=== PATIENT | female | born 1970 | race Hispanic/Latino ===

== ENCOUNTER 2017-10-31 10:45 | Emergency (ER) | payer OTHER ==
--- NOTE | 2017-10-31 11:12 | ED PDOC ---
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 Patient has mild amount of white discharge. She denies fever or chills. She does have slight burning sensation with urination but states this occurs when urine touches skin of external genitalia. She denies concern for STDs. She denies diffuse rash to body despite triage note stating otherwise. PMD: none Past Medical History Reviewed: Historical Data, Nursing Documentation, Vital Signs Vital Signs: Last Vital Signs Temp 98 F 10/31/17 13:15 Pulse 80 10/31/17 13:15 Resp 18 10/31/17 13:15 BP 120/70 10/31/17 13:15 Pulse Ox 98 10/31/17 13:15 - Medical History PMH: No Chronic Diseases - Surgical History Surgical History: Appendectomy, (x 2) - Family History Family History: States: No Known Family Hx - Living Arrangements Living Arrangements: With Family - Social History Current smoker - smoking cessation education provided: No Ex-Smoker (has not smoked in the last 12 months): No Alcohol: None Drugs: Denies - Home Medications Home Medications: Ambulatory Orders Medication Instructions Recorded Cyclobenzaprine [Cyclobenzaprine 10 mg PO TID #20 tab 10/17/15 HCl] Ibuprofen [Motrin] 600 mg PO Q6 #20 tab 10/17/15 Oxycodone HCl/Acetaminophen 1 tab PO Q4 #10 tab 10/17/15 [Percocet 325 mg-5 mg] Cyclobenzaprine [Cyclobenzaprine 10 mg PO Q8 #15 tab 12/01/15 HCl] Naproxen [Naprosyn] 500 mg PO BID #20 tablet 12/01/15 Fluconazole [Diflucan] 150 mg PO ONCE #1 tab 10/31/17 Metronidazole [Metrogel] 60 gm VAG HS #1 packet 10/31/17 - Allergies Allergies/Adverse Reactions: Allergies Allergy/AdvReac Type Severity Reaction Status Date / Time No Known Allergies Allergy Verified 10/17/15 11:05 Review of Systems ROS Statement: Except As Marked, All Systems Reviewed And Found Negative Constitutional: Negative for: Fever, Chills Gastrointestinal: Negative for: Vomiting, Abdominal Pain Genitourinary Female: Positive for: Dysuria, Vaginal Discharge, Other (vaginal pruritus). Negative for: Incontinence, Hematuria Physical Exam - Reviewed Nursing Documentation Reviewed: Yes Vital Signs Reviewed: Yes - Physical Exam Appears: Positive for: Well, Non-toxic, No Acute Distress Skin: Positive for: Normal Color. Negative for: Rash (no diffuse body rash) Gastrointestinal/Abdominal: Positive for: Soft. Negative for: Tenderness, Distended, Guarding, Rebound Pelvic Exam: Positive for: Other (erythema and skin excoriation noted to labia majora, mild white discharge, no lesions noted. ) Neurologic/Psych: Positive for: Alert, Oriented - Laboratory Results Urine POC: Negative Urine dip results: Negative for: Leukocyte Esterase, Blood, Nitrate, Ketones, Glucose, Bilirubin, Protein - ECG O2 Sat by Pulse Oximetry: 100 Pulse Ox Interpretation: Normal Medical Decision Making Medical Decision Making: Impression: 47-year-old female with vaginal discomfort Plan: Urine culture CHL/GC culture Rx diflucan and metrogel. Patient was referred to women[facility] clinic for follow up. Disposition - Clinical Impression Clinical Impression: Vaginal discomfort - Patient ED Disposition Is Patient to be Admitted: No Counseled Patient/Family Regarding: Studies Performed, Diagnosis, Need For Followup, Rx Given - Disposition Referrals: [facility] [Outside] Disposition: Routine/Home Disposition Time: 11:36 Condition: STABLE Additional Instructions: TAKE MEDS DIRECTED. FOLLOW UP WITH CLINIC IN 2-3 DAYS. Prescriptions: Fluconazole [Diflucan] 150 mg PO ONCE #1 tab Metronidazole [Metrogel] 60 gm VAG HS #1 packet Instructions: Bacterial Vaginosis, Vaginal Yeast Infection (DC) Forms: [employer] (Macedonian), [facility] ED School/Work Excuse Print Language: BELARUSIAN
[2017-10-31 11:13] VITALS: BP 120/70
[2017-10-31 13:16] VITALS: PULSE 80; RESP 18; TEMP 98
[2017-10-31 15:55] VITALS: O2SAT 100
== END 2017-10-31 13:18 | disposition home or self-care (01) ==
LOC: H.ER 10:45
DX: N89.9 Noninflammatory disorder of vagina, unspecified (principal)